=== PATIENT | female | born 1985 | race American Indian/Alaskan Native ===

== ENCOUNTER 2022-09-15 21:20 | Emergency (ER) | payer BC, SELFPAY ==
[2022-09-15 21:28] VITALS: BP 102/65; PULSE 87; RESP 16; TEMP 36.4; O2SAT 100
--- NOTE | 2022-09-15 21:30 | ED.FEMALEGU ---
HPI - Female Genitourinary General Chief complaint: Vaginal Bleeding Stated complaint: 7wks , spotting Time Seen by Provider: 09/15/22 21:30 Source: patient and RN notes reviewed Mode of arrival: ambulatory Limitations: no limitations History of Present Illness HPI Narrative: patient states she began having some spotting about 2 hours prior to arrival. Then approximately 20-25 minutes prior level she began having heavy dark red blood. She denies any clots she denies any tissue loss. She is having some cramping with this. She is approximately 7 weeks 3 days based on her last menstrual period. MD elicited complaint: vaginal bleeding and possible miscarriage Onset (ago): hour(s) (2) Location of symptoms: vaginal Severity: moderate Female Urogenital Radiation: Non-Radiating Quality of pain: cramping Consistency: progressively worsening Vaginal discharge: none Vaginal bleeding: moderate and dark red Exacerbating factors: none Relieving factors: none Associated symptoms: abdominal pain Date of Last Menstrual Period: 07/24/22 Related Data : 6 Para: 2 Total number of abortions (spontaneous and elective): 3 Home Medications Medication Instructions Recorded Confirmed vits [id number] fum 1 tablet PO DAILY 09/15/22 09/15/22 27 mg iron-folic acid 800 mcg tablet ( Vitamin) Allergies Allergy/AdvReac Type Severity Reaction Status Date / Time No Known Allergies Allergy Verified 09/15/22 21:26 Review of Systems Review of Systems: All systems reviewed & are unremarkable except as noted in HPI and below PMFSH Past Medical History Medical History (Updated 09/16/22 @ 00:01 by Melina Edwards) No active medical problems Surgical History Surgical History (Updated 09/15/22 @ 21:54 by Arpit Abel MD) History of section Times 2 Social History Social History (Updated 09/15/22 @ 21:54 by Arpit Abel MD) Smoking status: Never smoker Exam Const: General: healthy appearing, no acute distress and alert Nutritional Appearance: well nourished Orientation/consciousness: patient oriented x3 Limitations: no limitations Other: female tech in room during examination. HENMT: Head: normal to inspection Ears: external ears normal Face/Nose/Sinus: Normal external nose present Face and sinus: normal facial exam Mouth: Yes moist mucous membranes Eyes: Conjunctivae: conjunctivae normal Pupils: Equal, round and reactive pupils present EOM: EOMs intact bilaterally Neck: Neck: normal visual inspection Resp: Effort & Inspection: normal respiratory effort Auscultation: clear to auscultation bilaterally Cardio: Rate: regular rate Rhythm: regular rhythm GI: GI Palp: Yes Soft to palpation, Yes Tenderness to palpation present (GI) ( Mild lower pelvis) and No Guarding due to palpation present (GI) Auscultation: normal bowel sounds Back/Spine/Pelvis: Cervical Spine: cervical ROM normal Thoracic/Lumbar Spine: thoraco-lumbar ROM normal Skin: General skin exam: normal color Rashes: no rashes Neuro: General: patient oriented x3, moves all extremities, no focal motor deficits and CN's II-XI intact bilaterally Speech: normal speech Gait exam (Neuro): Normal gait present Extrem: General: normal to inspection and no clubbing, cyanosis or edema Psych: Appearance: grossly normal and well kempt Mental Status: mental status grossly normal Affect: normal affect Attitude: cooperative Course Course Emergency Course: I offered the patient pelvic exam with speculum and explained to her that my findings would not change anything that I do. She may proceed to spontaneous miscarriage or she may proceed to normal . She declined speculum exam at this time. I attempted to find heart tones and was unable finding at this time but could be due to such an early unable to find heart tones Vital Signs Vital signs: Vital Signs Temperatu
--- NOTE | 2022-09-15 21:39 | PC.NURSE ---
accompanied Dr. Abel into room, so that he could examine female pt.
--- NOTE | 2022-09-15 22:00 | PC.NURSE ---
Pt signs HIV testing declination form. Pt states is B positive blood type ERP aware may proceed with discharge.
== END 2022-09-15 22:06 | disposition home or self-care (01) ==
PROVIDERS: Emergency Provider Emergency Medicine; PCP Family Medicine
DX: O20.0 Threatened abortion (principal); Z3A.01 Less than 8 weeks gestation of pregnancy
CPT/HCPCS: 99282